=== PATIENT | male | born 1995 | race Caucasian/White ===

== ENCOUNTER → 2019-03-02 | Outpatient (CLI) | payer OTHER ==
--- NOTE | 2019-03-06 10:45 | REP ---
Scrotal sonography: Repeat dictation. History: Right-sided testicular pain. Findings: High-resolution bilateral scrotal sonography is performed. There is no evidence of intratesticular mass on either side. Right testis measures 5.4 x 2.1 x 3.1 cm. Left testicular dimensions are 5.7 x 2.2 x 2.6 cm. Epididymi are symmetric in size. There is a 0.3 cm epididymal cyst on the left. Small bilateral hydroceles are noted. Testicular Doppler flow is normal. Resistive indices are normal at 0.7 and 0.58 on the right and left testis respectively. Impression: No significant abnormality. Electronically Signed by Jacinto Keyes MD 03/06/2019 09:02 P
== END ==
LOC: M RAD 08:54
PROVIDERS: ATTEND Physician Assistant Medical
DX: N50.811 Right testicular pain (principal)

== ENCOUNTER → 2020-06-24 | Outpatient (CLI) | payer OTHER ==
[2020-06-24 12:42] LABS: EOS # 0.3 10^3/uL (0.0-0.5); EOS % 6.3 % (0.0-3.0); HEMATOCRIT 44.4 % (42.0-52.0); HEMOGLOBIN 14.9 g/dl (13.5-17.5); LYMPH # 1.4 10^3/uL (1.5-5.0); LYMPH % 34.3 % (24.0-44.0); MEAN CORPUSCULAR HEMOGLOBIN 28.2 pg (27.0-33.0); MEAN CORPUSCULAR HGB CONC 33.6 g/dl (32.0-36.5); MEAN CORPUSCULAR VOLUME 84.1 fl (80.0-96.0); MONO # 0.4 10^3/uL (0.0-0.8); MONO % 9.8 % (0.0-5.0); NEUTROPHILS # 1.9 10^3/uL (1.5-8.5); NEUTROPHILS % 48.3 % (36.0-66.0); PLATELET COUNT, AUTOMATED 247 10^3/uL (150-450); RED BLOOD COUNT 5.28 10^6/uL (4.30-6.10)
[2020-06-24 18:18] LABS: ALBUMIN 4.2 GM/DL (3.2-5.2); ALT/SGPT 24 U/L (12-78); BILIRUBIN,TOTAL 0.9 MG/DL (0.2-1.0); BLOOD UREA NITROGEN 16 MG/DL (7-18); CALCIUM LEVEL 9.3 MG/DL (8.5-10.1); CARBON DIOXIDE LEVEL 27 MEQ/L (21-32); CHLORIDE LEVEL 106 MEQ/L (98-107); CHOLESTEROL LEVEL 186 MG/DL (<200); CHOLESTEROL RISK RATIO 2.861 (<5); CREATININE FOR GFR 1.14 MG/DL (0.70-1.30); GLOMERULAR FILTRATION RATE > 60.0 (>60); GLUCOSE, FASTING 85 MG/DL (70-100); HDL CHOLESTEROL 65 MG/DL (>40); LDL CHOLESTEROL 108 MG/DL (<100); NON-HDL-C 121 MG/DL; POTASSIUM SERUM 4.8 MEQ/L (3.5-5.1); SODIUM LEVEL 140 MEQ/L (136-145); TOTAL PROTEIN 7.1 GM/DL (6.4-8.2); TRIGLYCERIDES LEVEL 65 MG/DL (<150)
--- NOTE | 2020-07-01 12:51 | REP ---
RIGHT HIP: 2-VIEWS HISTORY: Right hip pain. FINDINGS: AP and frog leg views of the right hip show smooth rounded femoral head and intact hip joint space. Periarticular soft tissues are unremarkable. No fracture is seen. No erosive change is noted. IMPRESSION: Negative radiographs of the right hip. MTDD
== END ==
LOC: M ADAMS 08:03
PROVIDERS: ATTEND Family Medicine
DX: M25.551 Pain in right hip (principal)

== ENCOUNTER → 2024-04-08 | Outpatient (REF) | payer OTHER | LOC: M WUC 17:47 | PROVIDERS: ATTEND Student in an Organized Health Care Education/Training Program | DX: J02.9 Acute pharyngitis, unspecified (principal) ==